=== PATIENT | male | born 1990 | race American Indian/Alaskan Native ===

== ENCOUNTER 2017-04-28 13:51 | Emergency (ER) | payer OTHER ==
[2017-04-28] MEDS ORDERED: TYLENOL #3 PO ONE (14:25)
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
[2017-04-28] MEDS ORDERED: MOTRIN PO ONE (15:22)
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
[2017-04-28 16:33] VITALS: BP 123/56
== END 2017-04-28 15:48 | disposition home or self-care (01) ==
LOC: ED 13:51
DX: M54.9 Dorsalgia, unspecified (principal); V49.49XA Driver injured in collision with other motor vehicles in traffic accident, initial encounter; X58.XXXA Exposure to other specified factors, initial encounter; Y93.9 Activity, unspecified; Y92.9 Unspecified place or not applicable; Y99.9 Unspecified external cause status
CPT/HCPCS: 70450; 71020; 72100; 99284